=== PATIENT | female | born 1940 | race Caucasian/White ===

== ENCOUNTER 2016-07-25 18:53 | Inpatient (IN) | payer MEDICARE, OTHER ==
--- NOTE | ~2016-07-25 | CR72 ---
[facility] A Service of [facility] RADIOLOGY TEXT RESULTS PATIENT: DOV KIM LOCATION: [facility] 465 : 40 UNIT #: [id number] AGE: [address]: Aj Watson MD SEX: F ORDER DR: [id number] [facility] [address] [place], [place] [address] [id number] I MR#: [id number] Acc #: [id number] NAME: DOV KIM. : 1940 SEX: F STUDY DATE/TIME: 07/25/2016 17:46 UNIT: [facility] ROOM: [facility] STUDY DESCRIPTION: CR Chest Single View Portable Attending Physician: Aj Watson M.D. Ordering Physician: Lincoln Beckman M.D. Primary Care Physician: Aj Watson M.D. MEDICAL IMAGING REPORT This report is preliminary unless electronic signature is present EXAM Portable chest HISTORY 75-year-old female fever, hypotension, weakness, palpitations since 07/24/2016. FINDINGS A portable view of the chest demonstrates no infiltrates or effusions. Heart, mediastinum unremarkable. Osseous structures remarkable for degenerative changes thoracic spine and probable chronic rotator cuff tear right shoulder. No definite acute cardiopulmonary abnormality is identified. Stable cardiomegaly. Dictated by... Serge Arias M.D. THIS IS AN ELECTRONICALLY VERIFIED REPORT Serge Arias M.D. at 07/26/2016 7:29 AM MILY/raymond TD: 07/26/2016 06:32 JOB #: [id number] MEDICAL IMAGING REPORT Page 1 of 1 COPY
--- NOTE | ~2016-07-25 | CT4 ---
[facility] A Service of [facility] RADIOLOGY TEXT RESULTS PATIENT: DOV KIM LOCATION: [facility] 465 : 40 UNIT #: [id number] AGE: [address]: Aj Watson MD SEX: F ORDER DR: [id number] [facility] [address] [place], [place] [address] [id number] I MR#: [id number] Acc #: [id number] NAME: DOV KIM. : 1940 SEX: F STUDY DATE/TIME: 07/26/2016 12:06 UNIT: [facility] ROOM: [facility] STUDY DESCRIPTION: CT Abd and Pelv Wo Cont Attending Physician: Aj Watson M.D. Ordering Physician: Aj Watson M.D. Primary Care Physician: Aj Watson M.D. MEDICAL IMAGING REPORT This report is preliminary unless electronic signature is present EXAM CT abdomen and pelvis without contrast INDICATIONS Lower abdomen pain since 07/25/[address] The CT exam was performed with one or more of the following radiation dose reduction techniques: automatic exposure control, adjustment of mA and/or kV according to patient size, and iterative reconstruction. Axial 5 mm images were obtained through the abdomen and pelvis with oral contrast only. FINDINGS Lung bases are clear. The liver is normal. The gallbladder is not visible. The spleen, adrenal glands and right kidney are normal. The left kidney has two cysts measuring 4.2 and 6.3 cm. The pancreas appears normal. Just inferior to the tail of the pancreas is a well-circumscribed oval density that may have a faintly calcified rim. It is about 2.9 cm in diameter and its internal contents are low in density measuring about 26 Hounsfield units. This was not visible in 2008. The aorta is normal in size. There is no adenopathy. There seems to be mild stranding around some of the left colon although the colon wall does not appear thickened. I believe there is a small amount of free fluid in the pelvis. The left hip prosthesis creates streak artifacts through the pelvis. There is a King catheter in the bladder. The prostate gland appears to be normal in size. There actually may be some mild wall thickening within the upper left colon suggesting colitis. [facility] A Service of [facility] RADIOLOGY TEXT RESULTS PATIENT: DOV KIM LOCATION: [facility] 465-01 : 40 UNIT #: [id number] AGE: [address]: Aj Watson MD SEX: F ORDER DR: IMPRESSION 1. I believe the patient has mild colitis with a several cm long segment of the mid to upper left colon showing mild wall thickening. There is surrounding inflammation and minimal free fluid in the pelvis. 2. There is a 2.3 cm well-circumscribed lesion just inferior to the tail of pancreas. It is well-circumscribed and low in density with a possibly faintly calcified rim and it is likely a benign finding but it was not visible in 2008 so I would recommend a follow up CT scan in 3 to 4 months which can be a CT abdomen without contrast to document stability. It could be a Schwannoma or perhaps some type of cyst. 3. Prior cholecystectomy. Dictated by... Kali Forman M.D. THIS IS AN ELECTRONICALLY VERIFIED REPORT Kali Forman M.D. at 07/26/2016 4:37 PM Hai TD: 07/26/2016 14:30 JOB #: [id number] MEDICAL IMAGING REPORT Page 1 of 1 COPY
--- NOTE | ~2016-07-25 | HP ---
Unit #: [id number] #: [id number] Patient: DOV KIM [id number] [address] [place], [place] [address] [id number] I MR#: [id number] NAME: DOV KIM. ROOM: [facility] Age: 75 Sex: F Admission Date: 07/25/2016 : 1940 Attending Physician: Aj Watson M.D. Primary Care Physician: Aj Watson M.D. HISTORY AND PHYSICAL HISTORY OF PRESENT ILLNESS The patient is a 75-year-old, obese, white female with a history of hypertension, chronic AFib, chronic anticoagulation therapy, overactive bladder, lumbar spinal stenosis, coronary artery disease, major depressive disorder, old CVA, and hyperparathyroidism. Had a facelift about a week ago and was sent home with p.r.n. hydrocodone and stool softeners. She had only taken a few. Her incision looks fine. She had no appetite whatsoever. Did not eat or drink for almost a week straight. Continued to take all of her medications, which include multiple antihypertensives. She eventually got to a point where she was unable to ambulate, fell to the floor, and was not found for some seven hours. She was brought to the emergency room. Here, she was found to be febrile and had leukocytosis, acute kidney injury, and hypotension and is admitted for treatment for same. The patient denies any known fever at home, although she states that she was cold and chilled, but never took her temperature. She denies any dysuria, any diarrhea, constipation, nausea or vomiting. No abdominal pain, cough, or other symptoms. ALLERGIES She has no known drug intolerances. MEDICATIONS PRIOR TO ADMISSION 1. Fosamax 70 mg p.o. weekly. 2. Aspirin 81 mg p.o. daily. 3. Coreg 6.25 mg p.o. daily. 4. Cardizem ER 180 mg daily. 5. Benadryl 50 mg p.o. daily. 6. Zetia 10 mg p.o. daily. 7. Neurontin 600 mg p.o. b.i.d. 8. Hydralazine 25 mg p.o. b.i.d. 9. Isosorbide dinitrate 20 mg b.i.d. 10. Prinivil 20 mg b.i.d. 11. Ditropan XL 10 mg q.h.s. 12. Paxil 40 mg p.o. daily. 13. Vitamin C 500 mg p.o. b.i.d. 14. Vitamin D 2000 units p.o. daily. 15. Xarelto 20 mg p.o. daily. PAST MEDICAL HISTORY Obesity, hyperparathyroidism, coronary artery disease, hypertension, osteoarthritis, lumbar spinal stenosis, hyperlipidemia, old CVA, and depression. SURGICAL HISTORY Unit #: [id number] #: [id number] Patient: DOV KIM Left hip open reduction and internal fixation, left tibial fracture x2, prior cholecystectomy, right lens implant, and facelift, as mentioned above. SOCIAL HISTORY , retired, nonsmoker, and nondrinker. No street drug use. FAMILY HISTORY Noncontributory. PHYSICAL EXAMINATION VITAL SIGNS: Her T. max overnight was 101.5, pulse 83, respirations 16, blood pressure 95/46, and O2 sat 98% on room air. HEENT: Unremarkable, except for sutures across her forehead and bruising around her left eye. The incision looks fine. There is no evidence of any infection whatsoever. NECK: Supple without JVD, bruits, adenopathy, or thyromegaly. CHEST: Clear to auscultation. HEART: Irregularly irregular and rapid without any S3, gallop, or murmur appreciated. ABDOMEN: Large and nondistended. Positive bowel sounds. Tender in the left upper quadrant without any voluntary guarding or rebound tenderness. No hepatosplenomegaly. EXTREMITIES: Showed no clubbing, cyanosis, or edema. : Deferred. RECTAL: Deferred. NEUROLOGIC: Grossly intact. DIAGNOSTIC STUDIES LABORATORY: Cardiac enzymes normal. Lactic acid normal x2. CMP normal, except random blood sugar of 120, BUN of 41, GFR of 36.7, albumin 3.3, and phosphorus 2.3. CK was within normal limits. Magnesium normal. Lipase normal. White count was 20.9 with a left shift, hemoglobin 12.8, and platelets 277,000. PT within normal limits and PTT within normal limits. Urinalysis: Trace leukocytes, 1 urobilinogen, and few hyaline casts. Flu swab for A and B was negative. IMAGING: Chest x-ray: Stable cardiomegaly. No active disease. CARDIOVASCULAR: EKG: AFib at 110 beats per minute, left axis deviation, nonspecific T abnormality, and single PVC. IMPRESSION 1. Dehydration. 2. Acute kidney injury. 3. Anorexia. 4. Leukocytosis. 5. Chronic AFib. 6. Chronic anticoagulation therapy. 7. Overactive bladder. 8. Obesity. 9. Hyperparathyroidism. 10. Coronary artery disease. 11. Hypotension. 12. Osteoarthritis. 13. Lumbar spinal stenosis. 14. Hyperlipidemia. 15. Old CVA. Unit #: [id number] #: [id number] Patient: DOV KIM PLAN Hold all meds, except Xarelto. Will lower dose to 15 mg for renal insufficiency per day. Hydrate with normal saline. Tylenol p.r.n. Patient has been started on Rocephin empirically. Will check a CT scan of the abdomen and pelvis. Follow renal function and white count. Further evaluation pending results of the above. Dictated by Warren Manuel/elio TD: 07/26/2016 07:41 JOB #: [id number] HISTORY AND PHYSICAL Page 1 of 1 X Aj Watson MD HISTORY AND PHYSICAL
--- NOTE | ~2016-07-25 | DS ---
Unit #: [id number] #: [id number] Patient: DOV KIM [id number] [address] [address] [id number] I MR#: [id number] NAME: DOV KIM. ROOM: [facility] Age: 75 Sex: F Admission Date: 07/25/2016 : 1940 Discharge Date: 07/29/2016 Attending Physician: Aj Watson M.D. Primary Care Physician: Aj Watson M.D. DISCHARGE SUMMARY PRINCIPAL DISCHARGE DIAGNOSES 1. Acute colitis, no organism identified. 2. Acute kidney injury. 3. Pancreatic mass with benign radiologic findings as well as a normal CA-19-9. 4. Chronic atrial fibrillation. 5. Chronic anticoagulation therapy. 6. Hypertension. 7. Overactive bladder syndrome. 8. Old cerebrovascular accident. 9. Coronary artery disease. 10. Lumbar spinal stenosis. 11. Hyperlipidemia. 12. Osteoarthritis. PROCEDURES None. CONSULTANTS None. REASON FOR HOSPITALIZATION The patient is a 75-year-old obese white female with history of hypertension, chronic atrial fibrillation, chronic anticoagulation therapy, overactive bladder, lumbar spinal stenosis, coronary artery disease, old CVA, had a face lift about a week ago and was sent home with p.r.n. hydrocodone and stool softeners. She had only taken a few. She had no appetite whatsoever, did not drink or eat for almost week straight, continued all of her medications which included many antihypertensives. She eventually got to the point where she is unable to ambulate, fell to the floor, was not found for some 7 hours, brought to the emergency room, found to be febrile with leukocytosis, acute injury, and hypotension and was admitted for same. On admission, she had a temperature of 101.5, blood pressure 95/46, respirations are 16, pulse 83, O2 saturation 98%. Cardiac enzymes normal. Lactic acid normal x2. BUN 41. GFR 36.7. CPK total was within normal limits. Magnesium normal. Lipase normal. White count was 20.9 with a left shift. Coags were normal. Urinalysis; trace leukocytes. Flu swab A and B were negative. Chest x-ray, stable cardiomegaly. No active disease. EKG; atrial fibrillation at 110 beats per minute, left axis deviation, single PVC, nonspecific T abnormality. HOSPITAL COURSE The patient was admitted to a telemetry bed. She was started on IV Unit #: [id number] #: [id number] Patient: DOV KIM. All her home medications were held except her Xarelto, which was lowered to 50 mg for renal insufficiency. She was started empirically on Rocephin. CT scan of the abdomen and pelvis were obtained. Labs were followed. She rapidly improved. CT scan of abdomen and pelvis which showed mild colitis, left colon with mild wall thickening surrounding inflammation, 2.3 cm well-circumscribed lesion just inferior to the tail of the pancreas. Faint calcified rim likely benign, but not visible on previous CT scan. Recommended follow up. Evidence of prior cholecystectomy. CA-19-9 was checked and was 8, well within normal limits. Stool for Clostridium difficile was ordered. After it was discovered she had colitis, she was switched to Flagyl and Levaquin and off the Rocephin. Stool for Clostridium difficile toxin was negative x1. The patient's appetite has improved. She has been off her IV fluids. Her BMP this morning was normal except for CO2 of 20. Her CBC this morning shows her white count to be down to 11.9. DISCHARGE MEDICATIONS She is being discharged home on Cipro 500 mg b.i.d. for an additional 7 days. Flagyl 500 mg t.i.d. for 7 days. She is to resume her home medicines which include Xarelto 20 mg daily, Neurontin 600 mg b.i.d., Paxil 40 mg daily, Benadryl 50 mg p.o. q.h.s., Zetia 10 mg daily, cough medicine p.r.n., Coreg 6.25 mg daily, diltiazem ER 180 mg daily, Ditropan 10 mg q.h.s., hydralazine 25 mg b.i.d., Prinivil 20 mg b.i.d., Fosamax 70 mg weekly, aspirin 81 mg daily, isosorbide dinitrate 20 mg b.i.d., vitamin C 500 mg b.i.d., vitamin D 2000 units daily. DISCHARGE INSTRUCTIONS When she follows up in the office, we will repeat her BMP and CBC. VNA is to follow. She is on a healthy-heart diet as tolerates. She will follow up again in 1 week with the above-mentioned labs. Dictated by... Warren Manuel/jaren TD: 07/30/2016 03:11 JOB #: [id number] DISCHARGE SUMMARY Page 1 of 1 X Aj Watson MD X DISCHARGE SUMMARY
--- NOTE | ~2016-07-25 | EKG ---
PATIENT: DOV KIM UNIT #: [id number] Ventricular Rate: 110 BPM Atrial Rate: 93 BPM QRS Duration: 90 ms Q-T Interval: 344 ms QTC Calculation(Bezet): 465 ms Calculated R Fingal: -57 degrees Calculated T Fingal: 44 degrees Diagnosis Line: Atrial fibrillation with rapid ventricular Diagnosis Line: response with premature ventricular or aberrantly Diagnosis Line: conducted complexes Diagnosis Line: Left axis deviation Diagnosis Line: Nonspecific T wave abnormality Diagnosis Line: Abnormal ECG Diagnosis Line: When compared with ECG of 05-FEB-2010 07:28, Diagnosis Line: Atrial fibrillation has replaced Sinus rhythm Diagnosis Line: Vent. rate has increased BY 44 BPM Diagnosis Line: Nonspecific T wave abnormality now evident in Diagnosis Line: Lateral leads Diagnosis Line: Confirmed by NICO WHATLEY MD ([id number]) on 07/26/2016 Diagnosis Line: 10:28:31 PM INTERPRETING MD: CHACORTA LAWS
[2016-07-25 17:53] LABS: POC - CKMB <1.0 ng/mL (0.0-7.9); POC - TROPONIN <0.05 ng/mL (<=0.05)
[2016-07-25 18:16] LABS: BASOPHIL% 0.1 % (0-2.5); HEMATOCRIT 39.8 % (35.0-45.0); HEMOGLOBIN 12.8 gm/dL (12.0-16.0); LYMPHOCYTE# 1.3 X10e3 (1.0-3.5); LYMPHOCYTE% 6.1 % (17.0-45.0); MEAN CELL VOLUME 98.2 FL (83-96); MEAN CORPUSCULAR HEMOGLOBIN 31.5 PG (28-34); MEAN CORPUSCULAR HGB CONC 32.1 g/dL (30-36); MEAN PLATELET VOLUME 8.1 FL (6.5-11.5); MONOCYTE# 2.1 X10e3 (0-1.0); MONOCYTE% 9.9 % (3.0-12.0); NEUTROPHIL# 17.5 X10e3 (1.5-7.1); NEUTROPHIL% 83.9 % (40-75); PLATELET COUNT 272 X10e3 (140-420); RED BLOOD COUNT 4.06 X10e (3.90-5.30); RED CELL DISTRIBUTION WIDTH 15.3 % (11.0-15.5); WHITE BLOOD COUNT 20.9 X10e3 (4.0-10.5)
[2016-07-25 18:19] LABS: URINE SOURCE CLEAN CATCH
[2016-07-25 18:19] LABS: INR 1.1; PARTIAL THROMBOPLASTIN TIME 30.4 SECONDS (23.5-31.3); PROTHROMBIN TIME (PATIENT) 11.5 SECONDS (9.6-11.5)
[2016-07-25 18:24] LABS: ALBUMIN SERUM 3.3 g/dL (3.5-5.0); BILIRUBIN, DIRECT 0.2 mg/dL (0.0-0.2); BILIRUBIN,INDIRECT 0.4 mg/dL (0.0-0.9); BILIRUBIN,TOTAL 0.6 mg/dL (0.2-2.0); BUN/CREATININE RATIO 29.28; CALCIUM SERUM 9.7 mg/dL (8.4-10.2); CREATININE SERUM 1.4 mg/dL (0.6-1.4); DIFF IND YES; GLOM FILT RATE Estimated 36.7 mL/min (>60); MAGNESIUM 2.3 mg/dL (1.6-3.0); PHOSPHOROUS 2.3 mg/dL (2.5-4.6); POTASSIUM 4.1 mmol/L (3.5-5.1); PROTEIN TOTAL SERUM 6.1 g/dL (6.0-8.3)
[2016-07-25 18:42] LABS: PLATELET ESTIMATE NORMAL (NORMAL); RBC NORMAL YES
[2016-07-25 18:47] LABS: URINE APPEARANCE CLEAR; URINE BLOOD NEG (NEG); URINE COLOR DK YELLOW; URINE GLUCOSE NEG (NEG); URINE KETONE NEG (NEG); URINE LEUKOCYTE ESTERASE TRACE (NEG); URINE NITRATE NEG (NEG); URINE PROTEIN NEG (NEG); URINE SPECIFIC GRAVITY 1.021 (1.003-1.035)
[2016-07-25 18:49] LABS: URINE BACTERIA AUWI NEG (NEGATIVE); URINE SQUAMOUS EPITHELIAL CELL NONE SEEN /[HPF]; UWBCS1 AUWI 0-2 (0-5)
[~2016-07-25 18:53] MED LIST: ACETAMINOPHEN PO; ACTONEL PO; ALENDRONATE SOD70 M1 PO; AMBIEN PO; ANTIVERT PO; ASPIRIN PO; ASPIRIN81 M1 PO; ASPIRIN81 M2 PO; BANOPHEN25 MG PO; BISACODYL10 MG/SUPP PR; CARDIZEM CD PO; CARDIZEM SR PO; CLONAZEPAM0.5 MG PO; CORDARONE200 M1 PO; COREG6.25 MG PO; COUMADIN5 MG PO; DELSYM COUGH+C180 M1 PO; DICLOFENAC PO; DILT-XR; DILT-XR PO; DILTIAZEM 24HR180 M1 PO; DILTIAZEM ER180 M3 PO; DITROPAN PO; DITROPAN XL PO; DURAGESIC TOP; FENTANYL1 EAC1 TD; FENTANYL1 PATCH .7 TOP; FERROUS SULFATE PO; FLAGYL PO; FLEXERIL PO; FLEXERIL10 MG PO; HYDRALAZINE HCL25 MG PO; IRON PO; ISORDIL PO; KEFLEX PO; LIPITOR PO; LISINOPRIL PO; LISINOPRIL30 MG PO; LOC PO; LOPRESSOR PO; LORTAB 10/500 T1 TAB PO; LORTAB 2.5/5001 TAB PO; LOTRISONE CREAM45 GM; LOVENOX SUBQ; LUNESTA PO; MACRODANTIN PO; METAMUCIL1 PKT PO; METOPROLOL TAR25 MG PO; MILK OF MAGNESIA PO; MYLANTA PO; MYLANTA400 MG PO; NEPHROCAPS CAPSU1 MG PO; NEURONTIN; NEURONTIN PO; NEURONTIN600 MG PO; NEXIUM PO; NITROGYLCERIN SUBLINGUAL; NYSTATIN5 ML PO; PAROXETINE HCL40 M1 PO; PAROXETINE HCL40 MG PO; PATADAY2.5 ML OU; PAXIL PO; PERCOCET10 PO; PHENERGAN PO; PLAVIX PO; PRINIVIL20 M1 PO; PROTONIX PO; REGLAN PO; SPECTAZOLE15 GM TP; TOPROL XL PO; VASOLEX OINTMEN30 GM TP; VICODIN PO; VIT B-12 PO; VITAMIN C500 M5 PO; VITAMIN D32000 UNI1 PO; VOLTAREN75 MG PO; XARELTO20 MG PO; ZETIA PO; [UNRECOGNIZED DRUG - OTHER] PO
[2016-07-25 18:55] LABS: URINE BILIRUBIN NEG (NEG)
[2016-07-25 18:56] LABS: CULTURE INDICATED? NO
[2016-07-25 20:01] LABS: INFLUENZA A NEG (NEG); INFLUENZA B NEG (NEG)
[2016-07-26 04:59] LABS: BASOPHIL% 0.1 % (0-2.5); EOSINOPHIL# 0.1 X10e3 (0-0.7); EOSINOPHIL% 0.4 % (0.0-7.0); HEMATOCRIT 36.1 % (35.0-45.0); HEMOGLOBIN 11.7 gm/dL (12.0-16.0); LYMPHOCYTE# 2.2 X10e3 (1.0-3.5); MEAN CELL VOLUME 98.4 FL (83-96); MEAN CORPUSCULAR HEMOGLOBIN 31.9 PG (28-34); MEAN CORPUSCULAR HGB CONC 32.4 g/dL (30-36); MEAN PLATELET VOLUME 8.3 FL (6.5-11.5); MONOCYTE# 1.5 X10e3 (0-1.0); NEUTROPHIL% 77.5 % (40-75); PLATELET COUNT 213 X10e3 (140-420); RED BLOOD COUNT 3.67 X10e (3.90-5.30); RED CELL DISTRIBUTION WIDTH 14.9 % (11.0-15.5); WHITE BLOOD COUNT 16.7 X10e3 (4.0-10.5)
[2016-07-26 05:00] LABS: DIFF IND NO
[2016-07-26 05:14] LABS: BUN/CREATININE RATIO 30.83; CALCIUM SERUM 9.2 mg/dL (8.4-10.2); CREATININE SERUM 1.2 mg/dL (0.6-1.4); GLOM FILT RATE Estimated 44.2 mL/min (>60); POTASSIUM 3.9 mmol/L (3.5-5.1)
[2016-07-28 17:10] LABS: BASOPHIL% 0.2 % (0-2.5); EOSINOPHIL# 0.1 X10e3 (0-0.7); EOSINOPHIL% 0.7 % (0.0-7.0); HEMATOCRIT 38.9 % (35.0-45.0); HEMOGLOBIN 12.4 gm/dL (12.0-16.0); LYMPHOCYTE# 1.8 X10e3 (1.0-3.5); LYMPHOCYTE% 15.5 % (17.0-45.0); MEAN CELL VOLUME 97.9 FL (83-96); MEAN CORPUSCULAR HEMOGLOBIN 31.2 PG (28-34); MEAN CORPUSCULAR HGB CONC 31.9 g/dL (30-36); MONOCYTE% 8.9 % (3.0-12.0); NEUTROPHIL# 8.8 X10e3 (1.5-7.1); NEUTROPHIL% 74.7 % (40-75); PLATELET COUNT 234 X10e3 (140-420); RED BLOOD COUNT 3.98 X10e (3.90-5.30); RED CELL DISTRIBUTION WIDTH 14.5 % (11.0-15.5); WHITE BLOOD COUNT 11.7 X10e3 (4.0-10.5)
[2016-07-28 17:12] LABS: DIFF IND NO
[2016-07-28 17:29] LABS: BUN/CREATININE RATIO 18.57; CALCIUM SERUM 9.2 mg/dL (8.4-10.2); CREATININE SERUM 0.7 mg/dL (0.6-1.4); GLOM FILT RATE Estimated 84.8 mL/min (>60)
[2016-07-29 04:09] LABS: BASOPHIL% 0.4 % (0-2.5); EOSINOPHIL# 0.2 X10e3 (0-0.7); EOSINOPHIL% 1.7 % (0.0-7.0); HEMATOCRIT 36.1 % (35.0-45.0); HEMOGLOBIN 11.8 gm/dL (12.0-16.0); MEAN CELL VOLUME 96.9 FL (83-96); MEAN CORPUSCULAR HEMOGLOBIN 31.6 PG (28-34); MEAN CORPUSCULAR HGB CONC 32.6 g/dL (30-36); MONOCYTE# 1.1 X10e3 (0-1.0); MONOCYTE% 9.1 % (3.0-12.0); NEUTROPHIL# 8.5 X10e3 (1.5-7.1); NEUTROPHIL% 71.8 % (40-75); PLATELET COUNT 278 X10e3 (140-420); RED BLOOD COUNT 3.73 X10e (3.90-5.30); RED CELL DISTRIBUTION WIDTH 14.8 % (11.0-15.5); WHITE BLOOD COUNT 11.9 X10e3 (4.0-10.5)
[2016-07-29 04:10] LABS: DIFF IND NO
[2016-07-29 04:20] LABS: BUN/CREATININE RATIO 18.57; CREATININE SERUM 0.7 mg/dL (0.6-1.4); GLOM FILT RATE Estimated 84.8 mL/min (>60); POTASSIUM 3.5 mmol/L (3.5-5.1)
[2016-07-29] MEDS ORDERED: FLAGYL PO (18:09)
[2016-07-29] MEDS ORDERED: CIPRO PO (18:09)
== END 2016-07-29 19:01 | disposition home health service (06) | DRG 392 ==
LOC: CED 18:53 → CEDOF 19:10 → C4C 21:51
PROVIDERS: Emergency Medicine; Internal Medicine
DX: K52.9 Noninfective gastroenteritis and colitis, unspecified (principal); N17.9 Acute kidney failure, unspecified; I95.9 Hypotension, unspecified; I48.2 Chronic atrial fibrillation; E86.0 Dehydration; R63.0 Anorexia; R50.9 Fever, unspecified; D72.829 Elevated white blood cell count, unspecified; Z79.01 Long term (current) use of anticoagulants; N32.81 Overactive bladder; Z90.49 Acquired absence of other specified parts of digestive tract; E66.9 Obesity, unspecified; R20.8 Other disturbances of skin sensation; I25.10 Atherosclerotic heart disease of native coronary artery without angina pectoris; M19.90 Unspecified osteoarthritis, unspecified site; M48.06 Spinal stenosis, lumbar region; E78.5 Hyperlipidemia, unspecified; Z86.73 Personal history of transient ischemic attack (TIA), and cerebral infarction without residual deficits; K86.9 Disease of pancreas, unspecified; Z68.38 Body mass index [BMI] 38.0-38.9, adult
CPT/HCPCS: 36415; 51702; 71010; 74176; 80048; 80076; 81003; 82550; 82553; 83605; 83690; 83735; 84100; 84484; 85025; 85610; 85730; 86301; 87040; 87493; 87804; 93005; 97116; 97161; 97166; 97530; 99285; G8978-GP; G8979-GP; G8987-GO; G8988-GO; G8989-GO; J0696; J1956; J2405

== ENCOUNTER → 2016-09-12 | Outpatient (CLI) | payer MEDICARE, OTHER ==
[~2016-09-12] MED LIST changes: +CIPRO PO
--- NOTE | ~2016-09-12 | MY11 ---
[facility] A Service of [facility] RADIOLOGY TEXT RESULTS PATIENT: DOV KIM LOCATION: [facility] : 40 UNIT #: [id number] AGE: [address]: Aj Watson MD SEX: F ORDER DR: [id number] [facility] [address] [place], [place] [address] [id number] MR#: [id number] Acc #: [id number] NAME: DOV KIM : 1940 SEX: F STUDY DATE/TIME: 09/12/2016 13:33 UNIT: [facility] ROOM: STUDY DESCRIPTION: MY Mammogram Screening Dig Dick Attending Physician: Aj Watson M.D. Referring Physician: Aj Watson M.D. Ordering Physician: Aj Watson M.D. Primary Care Physician: Aj Watson M.D. MEDICAL IMAGING REPORT This report is preliminary unless electronic signature is present EXAM Bilateral digital screening mammogram with CAD 09/12/2016 HISTORY 75-year-old female with no documented personal or family history breast cancer per complaints. COMPARISON Mild screening mammogram 09/10/2015, 04/08/2014, 03/20/2013. FINDINGS CC and MLO views were obtained of each breast utilizing digital technique and reviewed with FDA-approved CAD device. The breast parenchyma is predominately fatty replaced. No new or suspicious nodules are identified. No architectural distortion. Benign calcifications are present bilaterally. No suspicious clustered microcalcifications. IMPRESSION 1. BIRADS 1. Negative screening mammogram. Routine screening mammogram is recommended in 1 year. BIRADS: 1 Negative. Patients over the age of 40 are entered into a reminder system with target due date for the next mammogram. A result letter will also be sent to the patient. Dictated by... Josee Barnes M.D. THIS IS AN ELECTRONICALLY VERIFIED REPORT Josee Barnes M.D. at 09/13/2016 7:08 AM [facility] A Service of [facility] RADIOLOGY TEXT RESULTS PATIENT: DOV KIM LOCATION: [facility] : 40 UNIT #: [id number] AGE: [address]: Aj Watson MD SEX: F ORDER DR: ELIF/komal TD: 09/12/2016 17:29 JOB #: [id number] MEDICAL IMAGING REPORT Page 1 of 1 COPY
== END | disposition home or self-care (01) ==
LOC: CWCC 13:20
DX: Z12.31 Encounter for screening mammogram for malignant neoplasm of breast (principal)
CPT/HCPCS: G0202